=== PATIENT | male | born 2000 | race African-American/Black ===

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

== ENCOUNTER 2022-10-20 18:01 | Emergency (ER) | payer OTHER | END 2022-10-20 18:37 | disposition home or self-care (01) | LOC: NAV ERS 18:01 | DX: T25.222A Burn of second degree of left foot, initial encounter (principal); T22.212A Burn of second degree of left forearm, initial encounter; X10.1XXA Contact with hot food, initial encounter | CPT/HCPCS: 99283 ==

== ENCOUNTER 2023-02-27 10:34 | Emergency (ER) | payer OTHER | END 2023-02-27 11:17 | disposition home or self-care (01) | LOC: NAV ERS 10:34 | DX: R05.9 Cough, unspecified (principal); F17.210 Nicotine dependence, cigarettes, uncomplicated | CPT/HCPCS: 99283 ==

== ENCOUNTER 2023-04-06 14:40 | Emergency (ER) | payer SELFPAY ==
[2023-04-06] MEDS ORDERED: Ibuprofen 800 MG TAB ONE (15:11)
== END 2023-04-06 15:10 | disposition home or self-care (01) ==
LOC: NAV ERS 14:40
DX: M54.6 Pain in thoracic spine (principal); F17.210 Nicotine dependence, cigarettes, uncomplicated
CPT/HCPCS: 99283

== ENCOUNTER 2023-05-01 15:21 | Emergency (ER) | payer SELFPAY ==
[2023-05-01 16:17] LABS: #Basophils 0.1 thou/uL (0.0-0.2); #Lymphocytes 1.4 thou/uL (1.20-3.40); #Monocytes 0.4 thou/uL (0.11-0.59); #Neutrophils 2.3 thou/uL (1.40-6.50); %Basophils 1.9 % (0.0-1.0); %Eosinophils 0.8 % (0.0-10.0); %Lymphocytes 34.1 % (28.0-48.0); %Monocytes 9.8 % (0.0-4.0); %Neutrophils 53.5 % (31.0-61.0); Hematocrit 40.2 % (42.0-52.0); Hemoglobin 13.4 g/dL (14.0-18.0); Mean Corpuscular HGB CONC 33.2 g/dL (32.0-36.0); Mean Corpuscular Hemoglobin 31.1 pg (25.0-35.0); Mean Corpuscular Volume 93.6 fl (78.0-98.0); Mean Platelet Volume 8.9 fL (7.4-10.4); Platelet Count 246 10x3/uL (130-400); Red Blood Cell (RBC) Count 4.29 mill/uL (4.00-5.20); White Blood Cell (WBC) Count 4.2 10x3/uL (4.8-10.8)
[2023-05-01 16:20] LABS: Anion Gap 13 mmol/L (10-20); BUN (Urea Nitrogen) 8 mg/dL (8.9-20.6); Calc. Creatinine Clearance 0 mL/min (70-130); Calcium 9.6 mg/dL (7.8-10.44); Carbon Dioxide 27 mmol/L (22-29); Chloride 102 mmol/L (98-107); Estimated GFR 112; Glucose 101 mg/dL (70-105); Potassium 3.9 mmol/L (3.5-5.1); Sodium 138 mmol/L (136-145)
[2023-05-01 16:22] LABS: Troponin I Less than 0.010 ng/mL (< 0.028)
== END 2023-05-01 17:15 | disposition home or self-care (01) ==
LOC: NAV ERS 15:21
DX: R07.89 Other chest pain (principal); F17.210 Nicotine dependence, cigarettes, uncomplicated
CPT/HCPCS: 36415; 71045; 80048; 84484; 85025; 93005

== ENCOUNTER 2023-06-05 07:29 | Emergency (ER) | payer SELFPAY ==
[2023-06-05] MEDS ORDERED: Aspirin Chewable 81 MG TAB ONE (08:19)
[2023-06-05 08:52] LABS: #Basophils 0.1 thou/uL (0.0-0.2); #Eosinphils 0.1 thou/uL (0.0-0.7); #Lymphocytes 1.8 thou/uL (1.20-3.40); #Monocytes 0.4 thou/uL (0.11-0.59); #Neutrophils 3.9 thou/uL (1.40-6.50); %Basophils 1.9 % (0.0-1.0); %Eosinophils 1.2 % (0.0-10.0); %Lymphocytes 28.5 % (28.0-48.0); %Monocytes 6.7 % (0.0-4.0); %Neutrophils 61.7 % (31.0-61.0); Hemoglobin 13.2 g/dL (14.0-18.0); Mean Corpuscular HGB CONC 34.8 g/dL (32.0-36.0); Mean Corpuscular Volume 91.8 fl (78.0-98.0); Mean Platelet Volume 8.8 fL (7.4-10.4); Platelet Count 242 10x3/uL (130-400); RBC Distribution Width 10.4 % (11.5-14.5); Red Blood Cell (RBC) Count 4.14 mill/uL (4.00-5.20); White Blood Cell (WBC) Count 6.3 10x3/uL (4.8-10.8)
[2023-06-05 08:56] LABS: Bilirubin Negative (Negative); Blood, Urine Negative (Negative); Clarity Clear (Clear); Glucose, Urine (Dipstick) Negative (Negative); Ketone, Urine Negative (Negative); Leukocyte Negative (Negative); Nitrite Negative (Negative); Protein, Urine (Dipstick) Negative (Neg-Trace); Specific Gravity, Urine 1.015 (1.005-1.030); Urobilinogen 0.2 mg/dL (Less than 2); pH, Urine 5.5 (5.0-9.0)
[2023-06-05 09:03] LABS: Bacteria/HPF None Seen HPF (None Seen); CAUTI Indications for Culture Alt mental st,lethar; RBC/HPF 0-3 HPF (0-3); Squamous Epithelial None Seen HPF (0-3); WBC/HPF None Seen HPF (0-3)
[2023-06-05 09:04] LABS: Urine Culture Reflex No No
[2023-06-05 09:07] LABS: ALT (SGPT) 13 U/L (8-55); AST (SGOT) 17 U/L (5-34); Albumin 4.3 g/dL (3.5-5.0); Alkaline Phosphatase 72 U/L (50-130); Anion Gap 14 mmol/L (10-20); BUN (Urea Nitrogen) 9 mg/dL (8.9-20.6); Bilirubin, Total 0.6 mg/dL (0.2-1.2); Calc. Creatinine Clearance 0 mL/min (70-130); Calcium 9.2 mg/dL (7.8-10.44); Carbon Dioxide 24 mmol/L (22-29); Chloride 104 mmol/L (98-107); Estimated GFR 107; Globulin 3.3 g/dL (2.4-3.5); Glucose 106 mg/dL (70-105); Potassium 4.2 mmol/L (3.5-5.1); Protein, Total 7.6 g/dL (6.0-8.3); Sodium 138 mmol/L (136-145)
[2023-06-05 09:08] LABS: Troponin I Less than 0.010 ng/mL (< 0.028)
[2023-06-05 09:08] LABS: Amphetamine Not Detected (NotDetected); Barbiturates Screen Not Detected (NotDetected); Benzodiazepine Screen Not Detected (NotDetected); Cocaine Metabolite Screen Not Detected (NotDetected); Methadone Not Detected (NotDetected); Methamphetamine Not Detected (NotDetected); Opiate Screen Not Detected (NotDetected); Oxycodone Screen Not Detected (NotDetected); Phencyclidine (PCP) Not Detected (NotDetected); THC/Cannabinoid Screen Not Detected (NotDetected); Tricyclic Screen Not Detected (NotDetected)
== END 2023-06-05 09:35 | disposition home or self-care (01) ==
LOC: NAV ERS 07:29
DX: R07.89 Other chest pain (principal); F17.210 Nicotine dependence, cigarettes, uncomplicated
CPT/HCPCS: 71046; 80053; 80306; 81001; 84484; 85025; 93005; 94760

== ENCOUNTER 2024-01-28 17:24 | Emergency (ER) | payer SELFPAY ==
[2024-01-28] MEDS ORDERED: Ipratropium/Albuterol 3 ML NEB ONE (17:28)
[2024-01-28] MEDS ORDERED: predniSONE 20 MG TAB ONE (17:53)
== END 2024-01-28 18:11 | disposition home or self-care (01) ==
LOC: NAV ERS 17:24
DX: J45.901 Unspecified asthma with (acute) exacerbation (principal); F17.210 Nicotine dependence, cigarettes, uncomplicated
CPT/HCPCS: 99285; J7512; J7620

== ENCOUNTER 2024-02-10 18:57 | Emergency (ER) | payer SELFPAY ==
[2024-02-10 19:28] LABS: #Basophils 0.1 thou/uL (0.0-0.2); #Eosinophils 0.1 thou/uL (0.0-0.7); #Lymphocytes 2.2 thou/uL (1.20-3.40); #Monocytes 0.5 thou/uL (0.11-0.59); #Neutrophils 2.9 thou/uL (1.40-6.50); %Basophils 2.2 % (0.0-1.0); %Eosinophils 1.5 % (0.0-10.0); %Lymphocytes 37.2 % (21.0-51.0); %Neutrophils 50.1 % (42.0-75.0); Hematocrit 39.3 % (42.0-52.0); Mean Corpuscular HGB CONC 33.1 g/dL (32.0-36.0); Mean Corpuscular Hemoglobin 29.8 pg (27.0-31.0); Mean Corpuscular Volume 90.2 fl (78.0-98.0); Mean Platelet Volume 8.9 fL (7.4-10.4); Platelet Count 282 10x3/uL (130-400); RBC Distribution Width 10.4 % (11.5-14.5); Red Blood Cell (RBC) Count 4.36 mill/uL (4.70-6.10); White Blood Cell (WBC) Count 5.8 10x3/uL (4.8-10.8)
[2024-02-10 19:34] LABS: Clarity Clear (Clear); Glucose, Urine (Dipstick) Negative (Negative); Ketone, Urine Trace mg/dL (Negative); Leukocyte Negative (Negative); Nitrite Negative (Negative); Protein, Urine (Dipstick) Negative (Neg-Trace); pH, Urine 6.5 (5.0-9.0)
[2024-02-10 19:35] LABS: Bilirubin Negative (Negative); Blood, Urine Trace (Negative); Urobilinogen 0.2 mg/dL (Less than 2)
[2024-02-10 19:36] LABS: Amphetamine Not Detected (NotDetected); Barbiturates Screen Not Detected (NotDetected); Benzodiazepine Screen Not Detected (NotDetected); CAUTI Indications for Culture Fever or rigors; Cocaine Metabolite Screen Not Detected (NotDetected); Methadone Not Detected (NotDetected); Methamphetamine Not Detected (NotDetected); Opiate Screen Not Detected (NotDetected); Oxycodone Screen Not Detected (NotDetected); Phencyclidine (PCP) Not Detected (NotDetected); RBC/HPF 0-3 HPF (0-3); THC/Cannabinoid Screen Detected (NotDetected); Tricyclic Screen Not Detected (NotDetected); Urine Culture Reflex No No; WBC/HPF None Seen HPF (0-3)
[2024-02-10 19:39] LABS: ALT (SGPT) 27 U/L (8-55); AST (SGOT) 20 U/L (5-34); Albumin 4.1 g/dL (3.5-5.0); Alkaline Phosphatase 73 U/L (40-110); Anion Gap 15 mmol/L (10-20); BUN (Urea Nitrogen) 8 mg/dL (8.9-20.6); Bilirubin, Total 0.6 mg/dL (0.2-1.2); CK (CPK) 82 U/L (30-200); Calc. Creatinine Clearance 0 mL/min (70-130); Calcium 9.7 mg/dL (7.8-10.44); Carbon Dioxide 24 mmol/L (22-29); Chloride 105 mmol/L (98-107); Estimated GFR 99; Globulin 3.4 g/dL (2.4-3.5); Glucose 96 mg/dL (70-105); Potassium 3.3 mmol/L (3.5-5.1); Protein, Total 7.5 g/dL (6.0-8.3); Sodium 141 mmol/L (136-145)
== END 2024-02-10 19:57 | disposition home or self-care (01) ==
LOC: NAV ERS 18:57
DX: T40.711A Poisoning by cannabis, accidental (unintentional), initial encounter (principal); M79.10 Myalgia, unspecified site; F17.210 Nicotine dependence, cigarettes, uncomplicated
CPT/HCPCS: 80053; 80306; 81001; 82550; 85025; 99283

== ENCOUNTER 2025-01-10 06:28 | Emergency (ER) | payer SELFPAY ==
[2025-01-10] MEDS ORDERED: Ibuprofen 200 MG TAB ONE (06:54)
== END 2025-01-10 07:06 | disposition home or self-care (01) ==
LOC: NAV ERS 06:28
DX: K04.7 Periapical abscess without sinus (principal); F17.210 Nicotine dependence, cigarettes, uncomplicated
CPT/HCPCS: 99283

== ENCOUNTER 2025-02-19 04:34 | Emergency (ER) | payer SELFPAY ==
[2025-02-19 05:06] LABS: Glucose, Urine (Dipstick) Negative (Negative); Leukocyte Negative (Negative); Protein, Urine (Dipstick) Negative (Neg-Trace); Specific Gravity, Urine 1.015 (1.005-1.030)
[2025-02-19 05:12] LABS: Bacteria/HPF Rare-Few HPF (None Seen); CAUTI Indications for Culture Dysuria,urgency,freq; RBC/HPF 0-3 HPF (0-3); WBC/HPF 0-3 HPF (0-3)
[2025-02-19 05:13] LABS: Urine Culture Reflex No No
== END 2025-02-19 05:20 | disposition home or self-care (01) ==
LOC: NAV ERS 04:34
DX: N45.1 Epididymitis (principal); F17.210 Nicotine dependence, cigarettes, uncomplicated
CPT/HCPCS: 81001; 99284

== ENCOUNTER 2025-03-07 22:45 | Emergency (ER) | payer SELFPAY ==
[2025-03-07] MEDS ORDERED: Ibuprofen 200 MG TAB ONE (23:46)
== END 2025-03-07 23:50 | disposition home or self-care (01) ==
LOC: NAV ERS 22:45
DX: K04.4 Acute apical periodontitis of pulpal origin (principal); K04.7 Periapical abscess without sinus; K08.89 Other specified disorders of teeth and supporting structures; J45.909 Unspecified asthma, uncomplicated; F17.210 Nicotine dependence, cigarettes, uncomplicated
CPT/HCPCS: 99283

== ENCOUNTER 2025-03-08 19:13 | Emergency (ER) | payer SELFPAY | END 2025-03-08 19:37 | disposition home or self-care (01) | LOC: NAV ERS 19:13 | DX: J02.9 Acute pharyngitis, unspecified (principal); K08.89 Other specified disorders of teeth and supporting structures; J45.909 Unspecified asthma, uncomplicated; F17.210 Nicotine dependence, cigarettes, uncomplicated; Z79.51 Long term (current) use of inhaled steroids | CPT/HCPCS: 99283 ==